=== PATIENT | female | born 1970 | race African-American/Black ===

== ENCOUNTER 2019-01-22 13:15 | Emergency (ER) | payer OTHER ==
[~2019-01-22] VITALS: Ht 157.5 cm; Wt 80.5 kg
[2019-01-22 16:00] VITALS: BP 149/81
== END 2019-01-22 16:20 | disposition home or self-care (01) ==
LOC: ER 13:35
DX: J02.9 Acute pharyngitis, unspecified (principal); R05 Cough; Z90.10 Acquired absence of unspecified breast and nipple
CPT/HCPCS: 87430; 99283

== ENCOUNTER 2019-02-09 13:08 | Emergency (ER) | payer OTHER ==
[~2019-02-09] VITALS: Ht 157.5 cm; Wt 80.0 kg
[2019-02-09 13:21] VITALS: BP 141/89
== END 2019-02-09 18:02 | disposition home or self-care (01) ==
LOC: ER 13:08
DX: J02.9 Acute pharyngitis, unspecified (principal); Z90.10 Acquired absence of unspecified breast and nipple
CPT/HCPCS: 87070; 87430; 99283